=== PATIENT | male | born 1960 | race Caucasian/White ===

== ENCOUNTER 2019-07-02 07:41 | Day surgery (SDC) | payer OTHER ==
[~2019-07-02] VITALS: Ht 172.7 cm; Wt 81.8 kg
[2019-07-02] MEDS ORDERED: CITA20 (08:53)
[2019-07-02] MEDS ORDERED: FISH OIL + D31 EACH (08:53)
--- NOTE | 2019-07-02 08:57 | NUR ---
07/02/19 0857 JOSEPH SELBY 1 IV ATTEMPT BY MAMI VEIN ROLLED 2 IV ATTEMPT BY MAMI SUCCESSFUL
--- NOTE | 2019-07-02 10:15 | NUR ---
07/02/19 1015 Estefania Nath IV DC'D WITH 500 ML LTC
== END 2019-07-02 10:17 | disposition home or self-care (01) ==
LOC: ORSCSDS 07:41
PROVIDERS: Internal Medicine Gastroenterology
PROC: 0DBK8ZX Excision of Ascending Colon, Via Natural or Artificial Opening Endoscopic, Diagnostic (ICD-10-PCS; principal; 2019-07-02 09:00)
PROC: 0DBE8ZX Excision of Large Intestine, Via Natural or Artificial Opening Endoscopic, Diagnostic (ICD-10-PCS; principal; 2019-07-02 09:00)
DX: R19.4 Change in bowel habit (principal); Z86.010 Personal history of colon polyps; D12.2 Benign neoplasm of ascending colon; G47.30 Sleep apnea, unspecified; Z79.899 Other long term (current) drug therapy
CPT/HCPCS: 88305; J2704; J7120

== ENCOUNTER 2021-07-20 19:24 | Emergency (ER) | payer OTHER ==
[~2021-07-20] VITALS: Ht 172.7 cm; Wt 82.5 kg
[~2021-07-20 19:24] MED LIST: CITA20; FISH OIL + D31 EACH
== END 2021-07-20 22:44 | disposition home or self-care (01) ==
LOC: ER 19:24
DX: S51.812A Laceration without foreign body of left forearm, initial encounter (principal); Z23 Encounter for immunization; W45.0XXA Nail entering through skin, initial encounter
CPT/HCPCS: 12001; 73110; 90471; 99283-25

== ENCOUNTER → 2025-01-19 | Outpatient (CLI) | payer OTHER, MEDICARE ==
[~2025-01-19] MED LIST changes: +CENTRUM SILVER1 EAC2 PO; +Celexa20 MG PO; +FISH OIL 1,2001 EAC1; +HYOSCYAMINE0.375 M3 PO; +MELO7.5 PO
[2025-01-19 15:34] LABS: Alanine Aminotransfer (ALT/SGP 26 U/L (12-78); Albumin/Globulin Ratio 1.4 (0.8-1.8); Alk Phos 93 U/L (50-136); Anion Gap 7 mmol/L (3-11); Aspartate Aminotrans (AST/SGOT 18 U/L (12-37); Bilirubin, Total 0.9 mg/dL (0.1-1.0); Blood Urea Nitrogen 13 mg/dL (8-24); Bun/Creatinine Ratio 15.9 (12.0-20.0); CO2, Blood 32 mmol/L (21-32); Calcium, Blood 8.8 mg/dL (8.5-10.1); Chloride, Blood 104 mmol/L (98-108); Creatinine, Blood 0.82 mg/dL (0.60-1.20); Free Thyroxine 1.03 ng/dL (0.70-1.60); Globulin, Blood 2.8 g/dL (2.2-4.0); Glomerular Filtration Rate 97 (60-); Glucose, Blood 82 mg/dL (70-99); Potassium, Blood 4.4 mmol/L (3.5-5.5); Sodium, Blood 139 mmol/L (136-145); Total Protein, Blood 6.8 g/dL (6.4-8.2); Triiodothyronine, Free 2.86 pg/mL (2.18-3.98)
== END ==
LOC: LAB SHORT 14:01 → LAB 14:01
PROVIDERS: Internal Medicine
DX: Z00.00 Encounter for general adult medical examination without abnormal findings (principal); R61 Generalized hyperhidrosis; Z12.5 Encounter for screening for malignant neoplasm of prostate
CPT/HCPCS: 80053; 84439; 84443; 84481; G0103